=== PATIENT | female | born 1960 | race Two or more races ===

== ENCOUNTER 2021-12-17 09:43 | Day surgery (SDC) | payer OTHER ==
[~2021-12-17] VITALS: Ht 5 cm; Wt 59.0 kg
[~2021-12-17 09:43] MED LIST: APPL188C PO; B-COCAP34 PO; MAGN400T40 PO; POTA10TA51 PO; [UNRECOGNIZED DRUG - CODE] PO
[2021-12-17] MEDS ORDERED: DexAMETHasone SOD PHOS 10MG/1ML VIAL INJ IV ONE (09:44)
[2021-12-17] MEDS ORDERED: ceFAZolin 1GM/50ML 100 ML IV ONE (10:06)
[2021-12-17] MEDS ORDERED: fentaNYL CITRATE 100 MCG/2 ML VL ONE (11:14)
[2021-12-17] MEDS ORDERED: MIDAZOLAM HCL 2MG/2ML 2ml VIAL (1mg/ml) ONE (11:14)
[2021-12-17] MEDS ORDERED: PROPOFOL 10 MG/ML 20 ML IV ONE (11:15)
[2021-12-17] MEDS ORDERED: ePHEDrine SULFATE 50 MG/ML AMP IV PRN (13:00)
[2021-12-17] MEDS ORDERED: MORPHINE SULFATE 4 MG/ML SYR/VIAL IV PRN (13:00)
[2021-12-17] MEDS ORDERED: LABETALOL HCL 5 MG/ML 4ML SYRINGE IV PRN (13:00)
[2021-12-17] MEDS ORDERED: HYDROmorphone HCL 2 MG/ML VL/or syr IV PRN (13:00)
[2021-12-17] MEDS ORDERED: MIDAZOLAM HCL 2MG/2ML 2ml VIAL (1mg/ml) IV PRN (13:00)
[2021-12-17] MEDS ORDERED: ONDANSETRON HCL 4 MG/2 ML VIAL IV PRN (13:00)
[2021-12-17] MEDS ORDERED: HYDROmorphone HCL 2 MG/ML VL/or syr ONE (13:01)
[2021-12-17 14:54] VITALS: BP 138/66
== END 2021-12-17 14:25 | disposition home or self-care (01) ==
LOC: SUR 09:43
PROVIDERS: ATTEND Urology
DX: N20.0 Calculus of kidney (principal); I10 Essential (primary) hypertension; E78.5 Hyperlipidemia, unspecified; Z20.822 Contact with and (suspected) exposure to COVID-19; Z98.890 Other specified postprocedural states; Z79.899 Other long term (current) drug therapy; Z88.5 Allergy status to narcotic agent
CPT/HCPCS: 50590; C1769; J0690; J1100; J1170; J2250; J2704; J3010; J7030; U0003

== ENCOUNTER 2024-02-12 11:28 | Emergency (ER) | payer OTHER ==
[~2024-02-12] VITALS: Ht 165.1 cm; Wt 65.9 kg
[~2024-02-12 11:28] MED LIST changes: +POTA-36 PO; -POTA10TA51 PO
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
[2024-02-12 12:15] LABS: Basophils # (auto) 0.1 10 ^3/uL (0-0.2); Basophils % (auto) 0.6 % (0.0-2.0); Eosinophils # (auto) 0 10 ^3/uL (0-0.8); Eosinophils % (auto) 0.4 % (0.0-7.0); Hematocrit 42.9 % (36.0-46.0); Hemoglobin 14.5 g/dL (12.2-16.2); Lymphocytes # (auto) 1.5 10 ^3/uL (0.4-5.4); Lymphocytes % (auto) 17.4 % (10.0-50.0); Mean Corpuscular Hemoglobin 32.1 pg (28.0-32.0); Mean Corpuscular Hgb Conc. 33.9 g/dL (32.0-36.0); Mean Corpuscular Volume 94.6 fL (80.0-100.0); Monocytes # (auto) 0.5 10 ^3/uL (0-1.3); Monocytes % (auto) 5.6 % (0.0-12.0); Neutrophils # (auto) 6.6 10 ^3/uL (1.6-8.6); Platelet Count (auto) 320 10^3/uL (140-450); Red Blood Cells 4.53 10^6/uL (4.0-5.20); Red Cell Distribution Width 12.5 % (11.8-14.3); White Blood Cell 8.6 10^3/uL (4.4-10.8)
[2024-02-12 12:19] LABS: Chloride 105 mmol/L (98-107); Sodium 142 mmol/L (136-145)
[2024-02-12 12:20] LABS: Anion Gap 7 (5-15); Calcium 9.8 mg/dL (8.7-10.4); Carbon Dioxide 30 mmol/L (20-31)
[2024-02-12 12:25] LABS: BUN/Creatinine Ratio 12.6 (10.0-20.0); Blood Urea Nitrogen 11 mg/dL (9-23); Glucose 119 mg/dL (74-106)
[2024-02-12 12:27] LABS: Creatine Kinase IFCC 119 U/L (34-145)
--- NOTE | 2024-02-12 12:42 | DVH ---
CLINICAL INDICATION: Trauma TECHNIQUE: 3 radiographic views of the right shoulder were obtained. Comparison: None FINDINGS/IMPRESSION: There is superior subluxation of the right acromioclavicular joint.
[2024-02-12] MEDS: HYDROcodone-ACET 5/325MG TAB PO ONE (15:05)
[2024-02-12 15:06] VITALS: BP 125/62; PULSE 82; RESP 16; TEMP 98; O2SAT 97
== END 2024-02-12 15:07 | disposition home or self-care (01) ==
LOC: ER 11:28
DX: S43.111A Subluxation of right acromioclavicular joint, initial encounter (principal); Z88.8 Allergy status to other drugs, medicaments and biological substances; V29.888A Rider (driver) (passenger) of other motorcycle injured in other specified transport accidents, initial encounter; Y93.89 Activity, other specified; Y92.89 Other specified places as the place of occurrence of the external cause; Y99.8 Other external cause status
CPT/HCPCS: 36415; 73030; 80048; 82550; 85025